=== PATIENT | female | born 2005 | race Two or more races ===

== ENCOUNTER → 2024-08-14 | Outpatient (CLI) | payer BC, MEDICAID, SELFPAY ==
--- NOTE | 2024-08-14 11:30 | XR_ITS ---
Examination: Ultrasound soft tissue extremity right exit left Technique: Multiple high-resolution grayscale sonographic images soft tissue right axilla Exam date and time: August 14, 2024 1142 hrs. Indications: Patient states palpable lump in the right axillary region noticed beginning one month ago Findings: Cystlike area in the right axilla 5 x 4 x 5 mm No solid nodules Impression: Small cyst in the right axilla, 5 x 4 x 5 mm
== END | disposition home or self-care (01) ==
PROVIDERS: PCP Physician Assistant; Referring Provider Physician Assistant; Visit Provider Physician Assistant
DX: N60.01 Solitary cyst of right breast (principal)
CPT/HCPCS: 76882